=== PATIENT | female | born 1960 | race Caucasian/White ===

== ENCOUNTER 2018-01-07 10:15 | Day surgery (SDC) | payer MEDICARE ==
--- NOTE | ~2018-01-07 | OP ---
PATIENT NAME: ALEJANDRO HANNON MEDICAL RECORD: [id number] :62 LOCATION:[facility] ADMISSION DATE: SURGEON: JOVI SAWYER DO DATE OF OPERATION: 01/07/2018 PROCEDURE: Colonoscopy. INDICATIONS FOR PROCEDURE: Chronic constipation, generalized abdominal pain, hematochezia. SCOPE: Olympus video pediatric colonoscope. MEDICATIONS: Propofol 300 mg IV per anesthesia. WITHDRAWAL TIME: 8 minutes. ESTIMATED BLOOD LOSS: None. COMPLICATIONS: None. The patient's last colonoscopy was performed on December 242012. FINDINGS: Informed consent was given. The patient was made comfortable with the above medication. After reaching an adequate level of sedation by slow IV push, the patient was placed on her left side. A digital rectal examination was performed and revealed large external hemorrhoids without active bleeding. The endoscope was then advanced under direct visualization through the rectum to the cecum with visualization of the appendiceal orifice and ileocecal valve. The endoscope was slowly withdrawn and mucosa was carefully examined. The prep quality was fair. There were no polyps visualized on today's examination. There were no diverticula seen. Retroflexion was performed in the rectum with visualization of grade II internal hemorrhoids without active bleeding. The endoscope was then withdrawn from the patient. The patient tolerated the procedure well and there were no complications. IMPRESSION: Grade II internal and external hemorrhoids without active bleeding. This is the likely cause of the patient's hematochezia and is likely subsequent to her chronic constipation. PLAN AND RECOMMENDATIONS: 1. Discharge home when recovery parameters are met. 2. High fiber diet. 3. Supplement diet with 1-2 tablespoons of Metamucil or equivalent psyllium husk fiber daily. 4. We will provide a prescription for Anusol suppositories 25 mg b.i.d. times 14 days. 5. Consider trial of Linzess 145 or 290 mcg daily for chronic idiopathic constipation and irritable bowel syndrome, which is constipation predominant. 6. Recall colonoscopy in 7-10 years. TRANSINT:[id number] Voice Confirmation ID: [id number] DOCUMENT ID: [id number] OPERATIVE REPORT [id number] ALEJANDRO HANNON JOVI SAWYER DO at 5900 CC: [id number] DICTATION DATE: 01/07/18 1323 [employer] CHANGER: 01/07/18 1416 [facility] [place] 01/07/18 [place] [id number] [facility] [place] [address]
[2018-01-07 11:16] LABS: BASOPHILS 0.2 % (0-2); EOSINOPHILS 1.1 % (0-7); HEMATOCRIT 36.6 % (36.0-48.0); LYMPHOCYTES 34.7 % (15-50); MCH 28.7 pg (26.0-34.0); MCHC 32.8 g/dL (31.0-37.0); MCV 87.6 fL (80.0-100.0); MEAN PLATELET VOLUME 9.6 fL (7.4-10.4); MONOCYTES 6.5 % (2-11); NEUTROPHILS 57.5 % (40-80); PLATELET COUNT 179 10x3/uL (130-400); RBC 4.18 10x6/uL (4.00-5.40); RDW 13.4 % (11.5-14.5); WBC 4.5 10x3/uL (4.8-10.8)
[2018-01-07] MEDS ORDERED: ZANAFLEX4 MG PO (11:53)
[2018-01-07] MEDS ORDERED: DURAGESIC1 PATCH .1 TRANSDERM (11:54)
[2018-01-07] MEDS ORDERED: ULTRAM50 MG PO (11:54)
[2018-01-07] MEDS ORDERED: PROTONIX40 MG PO (11:55)
[2018-01-07 12:06] LABS: CALC OSMOLALITY 283 mosm/kg (275-300); CALCIUM 9.3 mg/dL (8.5-10.1); CARBON DIOXIDE 28.7 mmol/L (21.0-32.0); CHLORIDE - SERUM 106 mmol/L (98-107); CREATININE - SERUM 0.7 mg/dL (0.6-1.3); GLUCOSE 95 mg/dL (74-106); POTASSIUM - SERUM 3.6 mmol/L (3.5-5.1); SODIUM 143 mmol/L (136-145); UREA NITROGEN 11 mg/dL (7-18); eGFR NON AFRICAN AMERICAN > 90 mL/min (90-120)
== END 2018-01-07 14:45 | disposition home or self-care (01) ==
LOC: D.OPS 10:15
PROVIDERS: Anesthesiology
DX: K64.1 Second degree hemorrhoids (principal); Z01.812 Encounter for preprocedural laboratory examination; K92.1 Melena